=== PATIENT | male | born 1985 | race Caucasian/White ===

== ENCOUNTER 2022-04-09 16:06 | Inpatient (IN) | payer OTHER ==
[~2022-04-09] VITALS: Ht 193 cm; Wt 86.2 kg
--- NOTE | 2022-04-09 16:30 | NUR ---
aloc, + fentanyl use today (snorted) - [facility] + nausea and vomiting noted on exam Narcan 12 mg IN given by the paramedics
[2022-04-09] MEDS ORDERED: diphenhydrAMINE HCL 50 MG/ML VIAL ONE (16:56)
[2022-04-09] MEDS ORDERED: HALOPERIDOL LACTATE INJ 5 MG/ML VIAL ONE ×2 (16:56→17:33)
[2022-04-09] MEDS ORDERED: ONDANSETRON HCL/PF 4 MG/2 ML VIAL ONE (16:56)
[2022-04-09] MEDS ORDERED: IV NS 0.9% 1,000 ML BAG IV ONE ×2 (17:00→21:00)
[2022-04-09] MEDS ORDERED: HALOPERIDOL LACTATE INJ 5 MG/ML VIAL IM ONE ×2 (17:00→18:00)
[2022-04-09] MEDS ORDERED: ONDANSETRON HCL/PF 4 MG/2 ML VIAL IVP ONE (17:00)
[2022-04-09] MEDS ORDERED: diphenhydrAMINE HCL 50 MG/ML VIAL IM ONE (17:00)
--- NOTE | 2022-04-09 17:04 | NUR ---
remains agitated, keeps yelling about - wanting to drink water
--- NOTE | 2022-04-09 17:05 | NUR ---
haldol and benadryl given IM as ordered
--- NOTE | 2022-04-09 17:34 | NUR ---
additional 5 mg. Haldol given IM x 1
[2022-04-09 17:43] LABS: BASOPHILS % (AUTO) 0.2 % (0.0-2.0); EOSINOPHILS % (AUTO) 0.1 % (0.0-6.0); HEMATOCRIT 44 % (39-51); HEMOGLOBIN 14.5 g/dL (13.5-17.5); LYMPHOCYTES # (AUTO) 0.6 K/uL (0.8-4.8); LYMPHOCYTES % (AUTO) 3.7 % (20.0-44.0); MEAN CORPUSCULAR HGB CONC 33 g/dl (31.0-36.0); MEAN CORPUSCULAR VOLUME 91 fL (80-96); MONOCYTES % (AUTO) 6.6 % (2.0-12.0); NEUTROPHILS # (AUTO) 14.2 K/uL (1.8-8.9); NEUTROPHILS % (AUTO) 89.4 % (43.0-81.0); PLATELET COUNT (AUTO) 338 K/uL (150-450); RED BLOOD CELL COUNT(AUTO) 4.83 MIL/uL (4.5-6.0); WHITE BLOOD COUNT (AUTO) 15.9 K/uL (4.3-11.0)
[2022-04-09 17:56] LABS: BILIRUBIN,URINE NEGATIVE (NEGATIVE); COLOR,URINE YELLOW (YELLOW); LEUKOCYTE ESTERASE ,URINE NEGATIVE (NEGATIVE); NITRITE, URINE NEGATIVE (NEGATIVE); PH,URINE 5.5 (5.0-8.0); PROTEIN,URINE 100 mg/dl (NEGATIVE); UGLUCOSE NEGATIVE (NEGATIVE); UROBILINOGEN,URINE 0.2 EU/dL (0.2)
[2022-04-09 18:11] LABS: BACTERIA,URINE RARE /HPF (None Seen); MUCUS,URINE Moderate /LPF (None Seen); RBC,URINE 0-2 /HPF (0-2); SQUAMOUS EPITHELIAL CELL,UR 0-2 /HPF (None Seen); WBC,URINE 0-2 /HPF (0-3)
[2022-04-09 19:03] LABS: ALANINE AMINOTRANSFERASE 35 U/L (12-78); ALBUMIN 4.2 g/dL (3.4-5.0); ALCOHOL, BLOOD 86 mg/dL (0-0); ALKALINE PHOSPHATASE 79 U/L (46-116); ASPARTATE AMINOTRANSFERASE 50 U/L (15-37); BILIRUBIN,DIRECT 0.1 mg/dL (0.0-0.2); BILIRUBIN,TOTAL 0.5 mg/dL (0.2-1.0); CALCIUM, SERUM 8.5 mg/dL (8.5-10.1); CARBON DIOXIDE 22 mmol/L (21-32); CHLORIDE 107 mmol/L (98-107); GLUCOSE 75 mg/dL (74-106); POTASSIUM 3.8 mmol/L (3.5-5.1); SODIUM SERUM 147 mmol/L (136-145); TOTAL PROTEIN, SERUM 7.4 g/dL (6.4-8.2); UREA NITROGEN, BLOOD 20 mg/dL (7-18)
[2022-04-09 19:06] LABS: ACETAMINOPHEN < 10 ug/ml (10-30)
[2022-04-09] MEDS ORDERED: ONDANSETRON HCL/PF 4 MG/2 ML VIAL IVP PRN (21:00)
[2022-04-09] MEDS ORDERED: ACETAMINOPHEN 325 MG TABLET PO PRN (21:00)
--- NOTE | 2022-04-09 21:00 | NUR ---
PAGED CM, NEED AUTH TO STAY OR TRANSFER
--- NOTE | 2022-04-09 21:10 | NUR ---
YOANA PA ON PHONE CALL WITH DR PAZ
--- NOTE | 2022-04-09 21:19 | NUR ---
COVID SWAB COLLECTED AND SENT TO LAB
[2022-04-09 23:08] LABS: MAGNESIUM 2.9 mg/dL (1.8-2.4); PHOSPHORUS 5.1 mg/dL (2.5-4.9)
[2022-04-10] MEDS ORDERED: ACETAMINOPHEN 325 MG TABLET PO PRN (05:00)
[2022-04-10] MEDS ORDERED: ONDANSETRON HCL/PF 4 MG/2 ML VIAL IVP PRN (05:00)
[2022-04-10 05:17] LABS: BASOPHILS % (AUTO) 0.1 % (0.0-2.0); HEMATOCRIT 45 % (39-51); HEMOGLOBIN 14.8 g/dL (13.5-17.5); LYMPHOCYTES # (AUTO) 0.8 K/uL (0.8-4.8); LYMPHOCYTES % (AUTO) 5.8 % (20.0-44.0); MEAN CORPUSCULAR HGB CONC 33 g/dl (31.0-36.0); MEAN CORPUSCULAR VOLUME 92 fL (80-96); MONOCYTES # (AUTO) 0.9 K/uL (0.1-1.30); MONOCYTES % (AUTO) 6.3 % (2.0-12.0); NEUTROPHILS # (AUTO) 11.8 K/uL (1.8-8.9); NEUTROPHILS % (AUTO) 87.8 % (43.0-81.0); PLATELET COUNT (AUTO) 254 K/uL (150-450); RED BLOOD CELL COUNT(AUTO) 4.88 MIL/uL (4.5-6.0); WHITE BLOOD COUNT (AUTO) 13.4 K/uL (4.3-11.0)
[2022-04-10 05:35] LABS: CALCIUM, SERUM 8.5 mg/dL (8.5-10.1); CREATININE 1.3 mg/dL (0.6-1.3); MAGNESIUM 2.4 mg/dL (1.8-2.4); PHOSPHORUS 4.1 mg/dL (2.5-4.9); POTASSIUM 4.3 mmol/L (3.5-5.1)
--- NOTE | 2022-04-10 08:14 | NUR ---
CALLED PHARMACY FOR ZOSYN MEDICATION.
[2022-04-10] MEDS: ZOSYN IVPB 3.375 G in IV D5W 50ml IV SCH ×3 (08:23→22:11)
[2022-04-10] MEDS: VANCOMYCIN 1.25 GM in IV D5W 250 ML IV SCH ×2 (09:12→22:50)
--- NOTE | 2022-04-10 09:50 | NUR ---
RECEIVED IV ATB; ADMINISTERED INDICATED.
--- NOTE | 2022-04-10 10:00 | NUR ---
PT W/ VAUGHAN CATH IN PLACE. ABLE TO REMOVE 900CC OF URINE, YELLOW COLOR.
--- NOTE | 2022-04-10 13:02 | NUR ---
TECH AT BEDSIDE FOR US.
[2022-04-10] MEDS: IV NS 0.9% 1,000 ML IV PRN ×3 (14:02→22:11)
--- NOTE | 2022-04-10 14:33 | NUR ---
PT RETURNED FROM RADIOLOGY
[2022-04-10] MEDS ORDERED: ACETAMINOPHEN 325 MG TABLET ONE (14:38)
--- NOTE | 2022-04-10 20:03 | NUR ---
RECEIVED PT IN BED 14. PT IS RESTING COMFORTABLY IN BED, CONNECTED TO MONITOR. PT IS ALERT AND ORIENTED. AMBUALTORY WITH STEADY GAIT. WILL CONTINUE TO MONITOR.
--- NOTE | 2022-04-10 20:06 | NUR ---
PROVIDED PT WITH FOOD AND DRINK, WILL CONTINUE TO MONITOR
--- NOTE | 2022-04-10 20:30 | NUR ---
PT GOING TO 315-2 PER RN SALES APPRENTICE.
--- NOTE | 2022-04-10 20:32 | NUR ---
PT ROOM CHANGED TO [facility].
--- NOTE | 2022-04-10 21:04 | NUR ---
REPORT GIVEN TO GEORGIANA RIZZO
--- NOTE | 2022-04-10 21:26 | NUR ---
PATIENT TRANSFERRED, VSS, NO ACUTE DISTRESS NOTED.
[2022-04-10 21:30] VITALS: BP 141/77
--- NOTE | 2022-04-10 21:30 | NUR ---
admissions rn notes Received Pt from ER nurse. Pt is alert and orientedX4. On room air. No SOB. VS is stable. IV site at WILLOW #20 is clean, intact and flushes well. Forbes cath is inplaced and draining yellow urine. Skin assessment is done and performed and pictures are taken and placed at Pt's chart. Pt's belonging was checked by NABIL Dennis. Pt stated " I don't have any belongings." [place] Pt to the room and the use of call light. Pt verbalize understanding. Admission orders received. Safety precautions is maintained. Bed at low position, brakes locked, side rails upX3, hob elevated, bed alarm is on and call light is within reach. Will continue to monitor.
[2022-04-11] MEDS: ZOSYN IVPB 3.375 G in IV D5W 50ml IV SCH ×4 (02:17→20:04)
[2022-04-11] MEDS: IV NS 0.9% 1,000 ML IV PRN ×2 (04:20→13:45)
--- NOTE | 2022-04-11 06:40 | NUR ---
RN closing notes Pt is resting in bed comfortably. Pt is alert and orientedX4. On room air. No SOB. VS is stable. IV site at WILLOW #20 is clean, intact and infuising well NS@ 200ml/hr. Routine meds were given as ordered. Forbes cath is inplaced and draining yellow urine. Kept Pt clean, dry and comfortable. Safety precautions is maintained. Bed at low position, brakes locked, side rails upX3, hob elevated, bed alarm is on and call light is within reach. Will endorse to am nurse for TEE.
--- NOTE | 2022-04-11 07:05 | NUR ---
MS RN OPENING NOTES RECEIVED PATIENT IN BED RESTING, A/O x4. ON ROOM AIR, NO S/S OF SOB OR RESPIRATORY DISTRESS OR S/S OF CARDIAC DISTRESS. PATIENT HAS VAUGHAN CATHETER, YELLOW COLORED URINE PRESENT, DRAINING WELL. IV ACCESS WILLOW #20 G WITH NS 200 ML/HR RUNNING, INTACT AND PATENT. SKIN ISSUE: L AND R KNEE BLISTER. CAN AMBULATE WITH ASSISTANCE. SAFETY MEASURES IN PLACE: BED LOCKED AND IN LOWEST POSITION, SIDE RAILS UP x2, HEAD OF THE BED ELEVATED, CALL LIGHT WITHIN REACH. WILL CONTINUE TO MONITOR. WILL CONTINUE TO MONITOR.
[2022-04-11 07:18] LABS: BASOPHILS % (AUTO) 0.1 % (0.0-2.0); EOSINOPHILS % (AUTO) 0.9 % (0.0-6.0); HEMATOCRIT 41 % (39-51); HEMOGLOBIN 13.7 g/dL (13.5-17.5); LYMPHOCYTES % (AUTO) 6.9 % (20.0-44.0); MEAN CORPUSCULAR HGB CONC 34 g/dl (31.0-36.0); MEAN CORPUSCULAR VOLUME 90 fL (80-96); MONOCYTES % (AUTO) 7.1 % (2.0-12.0); NEUTROPHILS # (AUTO) 11.9 K/uL (1.8-8.9); PLATELET COUNT (AUTO) 220 K/uL (150-450); RED BLOOD CELL COUNT(AUTO) 4.51 MIL/uL (4.5-6.0)
[2022-04-11 07:58] LABS: ALBUMIN 2.8 g/dL (3.4-5.0); BILIRUBIN,TOTAL 0.8 mg/dL (0.2-1.0); CALCIUM, SERUM 8.1 mg/dL (8.5-10.1); CREATININE 0.9 mg/dL (0.6-1.3); PHOSPHORUS 2.5 mg/dL (2.5-4.9); POTASSIUM 3.6 mmol/L (3.5-5.1); TOTAL PROTEIN, SERUM 6.4 g/dL (6.4-8.2)
[2022-04-11 08:00] VITALS: BP 132/85
[2022-04-11] MEDS: VANCOMYCIN 1.25 GM in IV D5W 250 ML IV SCH ×2 (09:23→23:03)
[2022-04-11 16:00] VITALS: BP 137/85
--- NOTE | 2022-04-11 18:50 | NUR ---
MS RN CLOSING NOTE PATIENT IN BED RESTING, A/O x4. ON ROOM AIR, NO S/S OF SOB OR RESPIRATORY DISTRESS OR S/S OF CARDIAC DISTRESS. PATIENT HAS VAUGHAN CATHETER, YELLOW COLORED URINE PRESENT, DRAINING WELL. IV ACCESS WILLOW #20 G WITH NS 200 ML/HR RUNNING, INTACT AND PATENT. SKIN ISSUE: L AND R KNEE BLISTER. CAN AMBULATE WITH ASSISTANCE. SAFETY MEASURES IN PLACE: BED LOCKED AND IN LOWEST POSITION, SIDE RAILS UP x2, HEAD OF THE BED ELEVATED, CALL LIGHT WITHIN REACH. WILL CONTINUE TO MONITOR. ENDORSED PATIENT TO NEXT SHIFT FOR CONTINUITY OF CARE.
--- NOTE | 2022-04-11 19:46 | NUR ---
MS RN OPENING NOTE RECIEVED PATIENT IN BED AA/O x4. ON ROOM AIR, NO S/S OF SOB OR RESPIRATORY DISTRESS NOTED.PATIENT HAS VAUGHAN CATHETER, YELLOW COLORED URINE PRESENT, DRAINING WELL. IV ACCESS WILLOW #20 G WITH NS 200 ML/HR RUNNING, INTACT AND PATENT.CAN AMBULATE WITH ASSISTANCE. SAFETY MEASURES IN PLACE: BED LOCKED AND IN LOWEST POSITION, SIDE RAILS UP x2, HEAD OF THE BED ELEVATED, CALL LIGHT WITHIN REACH. WILL CONTINUE TO MONITOR.
[2022-04-11 20:19] VITALS: BP 139/88
[2022-04-12] MEDS: IV NS 0.9% 1,000 ML IV PRN (01:34)
[2022-04-12] MEDS: ZOSYN IVPB 3.375 G in IV D5W 50ml IV SCH ×3 (03:04→15:05)
[2022-04-12 06:40] LABS: BASOPHILS % (AUTO) 0.1 % (0.0-2.0); EOSINOPHILS % (AUTO) 2.4 % (0.0-6.0); HEMATOCRIT 39 % (39-51); HEMOGLOBIN 13.4 g/dL (13.5-17.5); LYMPHOCYTES # (AUTO) 0.8 K/uL (0.8-4.8); LYMPHOCYTES % (AUTO) 7.7 % (20.0-44.0); MEAN CORPUSCULAR HGB CONC 34 g/dl (31.0-36.0); MEAN CORPUSCULAR VOLUME 90 fL (80-96); MONOCYTES # (AUTO) 0.7 K/uL (0.1-1.30); MONOCYTES % (AUTO) 6.9 % (2.0-12.0); NEUTROPHILS % (AUTO) 82.9 % (43.0-81.0); PLATELET COUNT (AUTO) 227 K/uL (150-450); RED BLOOD CELL COUNT(AUTO) 4.36 MIL/uL (4.5-6.0); WHITE BLOOD COUNT (AUTO) 10.9 K/uL (4.3-11.0)
--- NOTE | 2022-04-12 06:48 | NUR ---
MS RN CLOSING NOTE PATIENT IN BED AA/O x4. ON ROOM AIR, NO S/S OF SOB OR RESPIRATORY DISTRESS NOTED.PATIENT HAS VAUGHAN CATHETER, YELLOW COLORED URINE PRESENT, DRAINING WELL 1900 OUTPUT.IV ACCESS RFA#20 G WITH NS 200 ML/HR RUNNING, INTACT AND PATENT.CAN AMBULATE WITH ASSISTANCE. SAFETY MEASURES IN PLACE: BED LOCKED AND IN LOWEST POSITION, SIDE RAILS UP x2, HEAD OF THE BED ELEVATED, CALL LIGHT WITHIN REACH. WILL ENDORSED TO NEXT SHIFT.
[2022-04-12 06:49] LABS: ALBUMIN 2.7 g/dL (3.4-5.0); BILIRUBIN,TOTAL 0.6 mg/dL (0.2-1.0); CALCIUM, SERUM 8.4 mg/dL (8.5-10.1); CREATININE 0.9 mg/dL (0.6-1.3); MAGNESIUM 2.2 mg/dL (1.8-2.4); PHOSPHORUS 3.1 mg/dL (2.5-4.9); POTASSIUM 3.5 mmol/L (3.5-5.1); TOTAL PROTEIN, SERUM 6.5 g/dL (6.4-8.2)
--- NOTE | 2022-04-12 07:19 | NUR ---
MS RN OPENING NOTE PATIENT IN BED RESTING, A/O x4. ON ROOM AIR, NO S/S OF SOB OR RESPIRATORY DISTRESS OR S/S OF CARDIAC DISTRESS. PATIENT HAS VAUGHAN CATHETER, YELLOW COLORED URINE PRESENT, DRAINING WELL. IV ACCESS WILLOW #20 G WITH NS 200 ML/HR RUNNING, INTACT AND PATENT. SKIN ISSUE: L AND R KNEE BLISTER. CAN AMBULATE WITH ASSISTANCE. SAFETY MEASURES IN PLACE: BED LOCKED AND IN LOWEST POSITION, SIDE RAILS UP x2, HEAD OF THE BED ELEVATED, CALL LIGHT WITHIN REACH. WILL CONTINUE TO MONITOR PATIENT
[2022-04-12] MEDS: VANCOMYCIN 1.25 GM in IV D5W 250 ML IV SCH ×2 (07:34→15:00)
[2022-04-12 08:00] VITALS: BP 125/70
--- NOTE | 2022-04-12 09:34 | NUR ---
WOUND CARE CONSULT: PT PRESENTS WITH OPEN BLISTERS TO BUTTOCKS, LEFT CALF AND INTACT BLISTERS TO KNEES, PRESENT ON ADMISSION. DR TEIXEIRA NOTIFIED OF SURGICAL CONSULT REQUEST. FOAM DRESSING WAS APPLIED TO BUTTOCKS (SACRAL OPTIFOAM SA DRESSING). PT IS CONTINENT WITH VAUGHAN AND IS ACTUALLY AMBULATORY TO BATHROOM WITH ASSISTANCE. IN AGREEMENT WITH PLAN OF CARE. Addendum: 04/12/22 at 10[address] TEIXEIRA NOTIFIED OF SURGICAL CONSULT REQUEST.
--- NOTE | 2022-04-12 13:00 | NUR ---
MS RN NOTE PATIENT AGREED TO BE FULLY ASSESSED WITH WOUND CARE NURSE AND NOTED OPEN BLISTER ON THE BUTTOCKS. PICTURE TAKEN AND ATTACHED TO CHART.
--- NOTE | 2022-04-12 13:30 | NUR ---
MS RN NOTE SEEN BY DR. STARKEY WITH ORDER FOR DISCHARGE. HEALTH TEACHING DONE REGARDING DISCHARGE, VERBALIZED UNDERSTANDING AND APPRECIATION. PROVIDED CLOTHING FOR PATIENT. AWAITING ROD PLACER FOR RESOURCES RELATED TO HOMELESSNESS. COMFORT MEASURES PROVIDED. VAUGHAN CATHETER REMOVED, TOLERATED WELL. WILL CONTINUE TO MONITOR.
--- NOTE | 2022-04-12 15:25 | NUR ---
SS consult: SS Consult requested for homelessness and drug abuse. The pt. is a 37- year-old male patient who came in for overdose. Upon SS consult, the pt. is Alert & Oriented x 4 and makes good eye contact. The pt. appears unkempt with dysphoric mood & affect. The pt. presents guarded and provided only vague and defensive answers. Pt.s speech is WNL. Per pt. he states he does not recall using any substances and that he was told by MD that he possibly overdosed on drugs. SW explored pt.s drug history and pt. stated he only uses marijuana. Pt. tested positive for some alcohol and Methamphetamine. Per MD note, possible Fentanyl use. SW provide pt. with the following medication SW explored pt.s living situation. Patient states he experiencing homelessness and stated he resides in [place]. SW explored pt.s mental health Hx. Patient refused to disclose any diagnosis stating, possibly in the past I have been diagnosed but who hasnt. Pt. denies SI/ HI and denies hallucinations. Per pt. he is ambulatory and independent with all his ADLs. MEGHNA explored pt.s support system. Pt. states he has no support system. Plan: Pt. states he is currently experiencing homelessness. pt. refused care home placement SW provided pt. with homeless and addiction resources and pt. refused them. MEGHNA provided pt. with TAP card and pt. accepted it. MEGHNA discussed DC plan with patient's nurse, Zachary. MEGHNA offered pt the following resources: Year-round shelters: [facility] [address] [place], [place] [phone] ; [place] [facility] [address] [place] [address]; [facility] [id number] [facility]. [facility] [address] Hygiene: [facility]: [address] [place] [address]. [place] ; [facility] [facility] [address] [facility] ; [facility] [address] . Food Resources: [place] [facility] at [facility]- [address] [place]; Meet Each Need with Dignity ([facility]) [address] [place]; [facility] [address] [facility]; [facility] [address] [place] [address] Villarreal. Mental Health resources provided: [facility] [address] [place] [address] ; [facility] [address] [facility] [address], [place] [address] ; [facility] [address] [place] [address] ; [facility] [address] [place], [place] [phone] Healthcare Clinics: [facility] [address] [facility], [address] [place]. [place] ; [facility] [address] [facility] [facility] [address] [facility] [address] [place] [address]; [facility] [address] [facility]. [place] [phone] Counseling--Outpatient [facility] [address], [place] [address] (Specializes in in-depth psychotherapy for emotional distress: anxiety, depression, interpersonal conflicts, life transitions, childhood abuse) [facility] [address] [place] [address] (Assist with solving problem marital difficulties, separation & divorce, aging parents, & grief, chronic & terminal illness) [facility] [address] [place] [address] (Deal with loss & grief, anxiety, marital difficulties) Homebound/Mental Health Services [address] [facility], [address] [place], [place] [address] (Provide in-home mental services to people who are incapable of leaving their homes) [facility] [address] [place] [address] [facility] [address] [facility] [address] PSYCHIATRIC OUTPATIENT SERVICES [facility] Partial Hospitalization and Intensive Outpatient Program (Managed Care and Forest Only)[address] [facility] [phone] [facility] Partial Hospitalization and Outpatient [id number] [place], [place] [phone] [facility] [place] [id number] [facility] [address] [place], [place] [phone] [facility] Partial Hospitalization and Outpatient [id number] eliMedStar Harbor HospitalthelmaMIAMIVILLE, [phone] Substance Abuse resources provided included: [facility] Substance Abuse Self-Helpline ([facility]) ; [facility] [address] [facility]. [place] [phone] ; [facility] [address] [facility] [address] ; [facility] [address] [address] ; [facility] [address] [facility] [phone] ; [facility] [address] [facility] [address] ; [facility] [address] [facility] [phone] ; [facility] Substance Abuse Helpline(SAS)-[facility] ; [facility] ; [facility] [place]; [facility] [place]; [facility] Sanjeev Singhthelma; [facility] [place]; [place] Julieta; [facility] Ramón; [facility]. Pierre C[place]; Alcoholics Anonymous -[facility]; [place] ; Marijuana Anonymous [facility]; Narcotics Anonymous www.na.org;
[2022-04-12 16:00] VITALS: BP 119/93
--- NOTE | 2022-04-12 16:00 | NUR ---
[facility] PATIENT TESTED +FOR MRSA IN [place] BUT PATIENT ALREADY LEFT FACILITY. ENDORSED ACCORDINGLY.
--- NOTE | 2022-04-12 16:00 | NUR ---
MS RN NOTE PATIENT DISCHARGED ORDERED. IV ACCESS REMOVED AND COVERED WITHE DRY DRESSING. TOLERATED WELL. REFUSED LAST DOSE OF ANTIBIOTICS. DOCUMENTS GIVEN INCLUDING PATIENT'S PRESCRIPTION. PATIENT ABLE TO PEE WITHOUT ANY PROBLEM. IN STABLE CONDITION. TAP CARD PROVIDED BY TAX PROCESSOR. PATIENT ACCOMPANIED TO LOBBY BY ANOTHER NURSE. IN STABLE CONDITION. ENDORSED ACCORDINGLY. REFUSED PICTURE RELATED TO BODY LESIONS.
== END 2022-04-12 16:00 | disposition home or self-care (01) | DRG 812 ==
LOC: ER 16:39 → EDBD 16:39 → TRANSITION 04-10 04:26 → TELE 04-10 20:36 → MED 04-10 21:07
PROVIDERS: ADMIT Nurse Practitioner Acute Care
DX: T40.411A Poisoning by fentanyl or fentanyl analogs, accidental (unintentional), initial encounter (principal); N17.0 Acute kidney failure with tubular necrosis; J69.0 Pneumonitis due to inhalation of food and vomit; G92.8 Other toxic encephalopathy; L03.115 Cellulitis of right lower limb; M62.82 Rhabdomyolysis; E87.0 Hyperosmolality and hypernatremia; T40.601A Poisoning by unspecified narcotics, accidental (unintentional), initial encounter; L03.116 Cellulitis of left lower limb; N17.9 Acute kidney failure, unspecified; E86.0 Dehydration; F12.10 Cannabis abuse, uncomplicated; F15.10 Other stimulant abuse, uncomplicated; Y92.099 Unspecified place in other non-institutional residence as the place of occurrence of the external cause; F10.10 Alcohol abuse, uncomplicated; Y90.4 Blood alcohol level of 80-99 mg/100 ml; S80.222A Blister (nonthermal), left knee, initial encounter; S80.221A Blister (nonthermal), right knee, initial encounter; X58.XXXA Exposure to other specified factors, initial encounter; Y92.9 Unspecified place or not applicable; S80.211A Abrasion, right knee, initial encounter; L02.92 Furuncle, unspecified; F19.10 Other psychoactive substance abuse, uncomplicated
CPT/HCPCS: 36415; 71045-TC; 73564-TC; 73700-TC; 76770-TC; 80048-TC; 80053-TC; 80061-TC; 80076-TC; 80202-TC; 81001; 82550-TC; 82553; 83735-TC; 84100-TC; 84550-TC; 85025-TC; 85652-TC; 86140-TC; 87081-TC; 87806; 93307-TC; A6253; C9803; G0378; G0480; J1200; J1630; J2405; J2543; J3370; J7030; J7060

== ENCOUNTER 2022-05-01 15:03 | Emergency (ER) | payer OTHER ==
[~2022-05-01] VITALS: Ht 177.8 cm; Wt 79.4 kg
--- NOTE | 2022-05-01 15:45 | NUR ---
maria c from the streets, c/o r knee pain w/ noted wound packed w/ tobacco leaves. PLACED ON BED, AAOX4, NOT IN PAIN, PAIN WHEN KNEE IS BEND VERBALIZES.
[2022-05-01] MEDS ORDERED: IV NS 0.9% 1,000 ML BAG IV ONE ×2 (16:30)
--- NOTE | 2022-05-01 16:49 | NUR ---
BLOOD DRAWN AND SWAB FOR COVID19 SENT TO LAB
[2022-05-01 16:51] LABS: BASOPHILS % (AUTO) 0.5 % (0.0-2.0); EOSINOPHILS % (AUTO) 1.2 % (0.0-6.0); HEMATOCRIT 43 % (39-51); HEMOGLOBIN 14.6 g/dL (13.5-17.5); LYMPHOCYTES # (AUTO) 1.5 K/uL (0.8-4.8); LYMPHOCYTES % (AUTO) 16.7 % (20.0-44.0); MEAN CORPUSCULAR HGB CONC 34 g/dl (31.0-36.0); MEAN CORPUSCULAR VOLUME 89 fL (80-96); MONOCYTES # (AUTO) 0.8 K/uL (0.1-1.30); NEUTROPHILS # (AUTO) 6.4 K/uL (1.8-8.9); NEUTROPHILS % (AUTO) 72.6 % (43.0-81.0); PLATELET COUNT (AUTO) 497 K/uL (150-450); RED BLOOD CELL COUNT(AUTO) 4.87 MIL/uL (4.5-6.0); WHITE BLOOD COUNT (AUTO) 8.9 K/uL (4.3-11.0)
[2022-05-01 17:12] LABS: CALCIUM, SERUM 9.2 mg/dL (8.5-10.1); CREATININE 1.2 mg/dL (0.6-1.3); POTASSIUM 3.9 mmol/L (3.5-5.1)
[2022-05-01 17:16] LABS: ALBUMIN 3.8 g/dL (3.4-5.0); BILIRUBIN,DIRECT 0.2 mg/dL (0.0-0.2); BILIRUBIN,TOTAL 0.7 mg/dL (0.2-1.0); TOTAL PROTEIN, SERUM 8.8 g/dL (6.4-8.2)
[2022-05-01] MEDS ORDERED: CEFTRIAXONE 1GM BAG (ER ONLY) 1 GM/50 ML PIGGYBACK IV ONE (17:30)
[2022-05-01] MEDS ORDERED: DOXYCYCLINE HYCLATE (100 MG) 100 MG TABLET PO ONE (17:30)
[2022-05-01] MEDS ORDERED: DOXY100C2 PO (17:52)
[2022-05-01] MEDS ORDERED: DOXYCYCLINE HYCLATE (100 MG) 100 MG TABLET ONE (17:55)
--- NOTE | 2022-05-01 18:48 | NUR ---
IV removed. Catheter intact and site benign. Pressure and 4x4 applied to site. No bleeding noted.Patient discharged to home in stable condition. Written and verbal after care instructions given. Patient verbalizes understanding of instruction.
[2022-05-01 19:08] VITALS: BP 125/90
== END 2022-05-01 18:48 | disposition home or self-care (01) ==
LOC: ER 15:11
DX: L97.829 Non-pressure chronic ulcer of other part of left lower leg with unspecified severity (principal); L97.818 Non-pressure chronic ulcer of other part of right lower leg with other specified severity; L08.9 Local infection of the skin and subcutaneous tissue, unspecified; Z72.0 Tobacco use; Z20.822 Contact with and (suspected) exposure to COVID-19; Z59.00 Homelessness unspecified; F15.10 Other stimulant abuse, uncomplicated; F19.10 Other psychoactive substance abuse, uncomplicated; R36.9 Urethral discharge, unspecified; R79.1 Abnormal coagulation profile; Z72.51 High risk heterosexual behavior; A54.9 Gonococcal infection, unspecified; R03.0 Elevated blood-pressure reading, without diagnosis of hypertension
CPT/HCPCS: 99284; 96365; 96361; 87426; 99406; 73564 ×2; 84145; 85025; 80048; 87040 ×2; 83605; 80076; 36415; 85730; J7030; J0696; C9803